=== PATIENT | male | born 1955 | race Caucasian/White ===

== ENCOUNTER → 2016-10-01 | Outpatient (CLI) | payer BC | END | disposition home or self-care (01) | LOC: GMAB 14:46 | PROVIDERS: ATTEND Family Medicine | DX: M79.1 Myalgia (principal) ==

== ENCOUNTER → 2017-03-03 | Outpatient (CLI) | payer BC | END | disposition home or self-care (01) | LOC: LAB 14:43 | PROVIDERS: ATTEND Urology | DX: R97.20 Elevated prostate specific antigen [PSA] (principal) ==

== ENCOUNTER → 2018-06-08 | Outpatient (CLI) | payer BC | LOC: GMAE 17:33 | PROVIDERS: ATTEND Family Medicine | DX: Z00.01 Encounter for general adult medical examination with abnormal findings (principal) ==

== ENCOUNTER → 2018-06-20 | Outpatient (CLI) | payer BC | LOC: GMAE 10:48 | PROVIDERS: ATTEND Family Medicine | DX: R94.6 Abnormal results of thyroid function studies (principal) ==

== ENCOUNTER → 2018-11-14 | Outpatient (CLI) | payer MEDICARE, OTHER ==
--- NOTE | 2018-11-14 12:15 | US ---
EXAM DESCRIPTION: Abdomen,Complete CLINICAL HISTORY: R10.84 COMPARISON: Previous CT abdomen and pelvis March 26, 2011 TECHNIQUE: Complete abdominal ultrasound FINDINGS: Visualized portions of the pancreas are unremarkable. No peripancreatic fluid. Bowel gas obscures some areas. Normal caliber of the aorta. Normal appearance of the inferior vena cava. Liver parenchyma is homogeneous in texture with normal echogenicity. No liver mass or intrahepatic bile duct dilatation. No liver surface irregularity. Normal appearance of hepatic veins and portal vein. Gallbladder appears normal with no intraluminal stones. No gallbladder wall thickening. Common bile duct is normal in caliber measuring 3.6 mm. The right kidney measures 11.7 cm in length. Normal renal cortical echogenicity. Mild diffuse renal cortical thinning. No right renal mass, shadowing stone or cyst. There is no hydronephrosis. Spleen is mildly enlarged measuring 13.3 cm on coronal diagonal measurement. No focal splenic lesion. Previous CT March 26, 2011 showed a craniocaudal length of the spleen 13.9 cm. The left kidney measures 11.7 cm in length. Normal renal cortical echogenicity. Renal cortical thinning is present at the upper and lower poles. No left renal mass, shadowing stone or cyst. There is no hydronephrosis. IMPRESSION: No acute upper abdominal process. Electronically signed by: Terence Jolly MD 11/14/2018 12:12 PM CDT
== END ==
LOC: RAD 11:09
PROVIDERS: ATTEND Physician Assistant
DX: R10.84 Generalized abdominal pain (principal); R11.2 Nausea with vomiting, unspecified

== ENCOUNTER → 2018-12-08 | Outpatient (CLI) | payer MEDICARE, OTHER ==
--- NOTE | 2018-12-08 12:48 | CT ---
Study: CT abdomen and pelvis. Indication: ABDOMINAL PAIN Technique: Noncontrast, venous, and delayed phase CT imaging of the abdomen and pelvis obtained after intravenous administration of contrast. This exam was performed according to our departmental dose-optimization program, which includes automated exposure control, adjustment of the mA and/or kV according to patient size and/or use of iterative reconstruction technique. Comparison: Ultrasound November 14, 2018. CT March 26, 2011. Findings: Cardiomegaly. Patchy bibasilar atelectasis. Liver, gallbladder, pancreas, spleen, adrenal glands, kidneys, bladder unremarkable. Prostatomegaly. Tiny hiatal hernia. Colonic diverticulosis. Small bowel and appendix unremarkable. No free fluid. No free air. No pathologically enlarged adenopathy Atherosclerosis aorta. Degenerative changes of the spine noted. Impression: Colonic diverticulosis without diverticulitis. Prostatomegaly. Correlation with PSA recommended. Atherosclerosis. Additional findings as above. Electronically signed by: Topher Garcia MD 12/08/2018 12:46 PM CDT
== END ==
LOC: CT 11:50
PROVIDERS: ATTEND Physician Assistant
DX: K57.30 Diverticulosis of large intestine without perforation or abscess without bleeding (principal); N40.0 Benign prostatic hyperplasia without lower urinary tract symptoms; I70.90 Unspecified atherosclerosis

== ENCOUNTER → 2019-01-31 | Outpatient (CLI) | payer MEDICARE, OTHER ==
--- NOTE | 2019-01-31 10:06 | US ---
EXAM DESCRIPTION: Venous,Lower Extremity RT: ULTRASOUND. CLINICAL HISTORY: Leg pain. Right leg swelling. COMPARISON: None Available. TECHNIQUE: Au-scale and doppler sonographic evaluation of the deep venous system of the right lower extremity. FINDINGS: Doppler evaluation shows normal color flow and normal phasicity and augmentation of the right common femoral vein, femoral vein, popliteal vein, greater/lesser saphenous vein, peroneal, and posterior tibial vein. The right lower extremity deep veins were completely compressible; normal occlusion with transducer pressure. Au-scale survey showed no echogenic thrombus within these veins. IMPRESSION: 1. Duplex ultrasound evaluation of the right lower extremity deep venous system showing no evidence of thrombosis. Electronically signed by: Alfonso Adkins MD 01/31/2019 10:03 AM CDT
== END ==
LOC: CT 09:26
PROVIDERS: ATTEND Physician Assistant
DX: M79.661 Pain in right lower leg (principal)

== ENCOUNTER → 2019-08-01 | Outpatient (CLI) | payer MEDICARE, OTHER ==
--- NOTE | 2019-08-01 12:53 | MRI ---
Study: MRI of the left humerus. Indication: PAIN UPPER LEFT ARM Technique: Multiplanar, multi sequence MRI of the left humerus was obtained without intravenous contrast. Comparison: None. Findings: Examination not optimized to evaluate the left shoulder or elbow for internal derangement. No tear of the musculature of the left upper arm. No abnormal intramuscular edema. No acute fracture of the left humerus. Fluid distention of the extracapsular long head biceps tendon sheath with suspected tendinosis. Impression: No muscle tear or fracture of the left upper arm. Fluid distention of the extracapsular long head biceps tendon sheath with suspected tendinosis. If concern for internal derangement of the left shoulder for elbow, correlation with dedicated imaging of those joints recommended. Electronically signed by: Topher Garcia MD 08/01/2019 12:51 PM [facility]
== END ==
LOC: MRI 09:35
PROVIDERS: ATTEND Family Medicine
DX: M79.622 Pain in left upper arm (principal); M62.89 Other specified disorders of muscle

== ENCOUNTER → 2019-08-08 | Outpatient (CLI) | payer MEDICARE, OTHER | LOC: GMAE 10:35 | PROVIDERS: ATTEND Family Medicine | DX: Z12.5 Encounter for screening for malignant neoplasm of prostate (principal); I10 Essential (primary) hypertension; E78.2 Mixed hyperlipidemia | CPT/HCPCS: 84443; G0103 ==

== ENCOUNTER → 2019-08-28 | Outpatient (CLI) | payer MEDICARE, OTHER ==
--- NOTE | 2019-08-28 11:50 | RAD ---
4 radiographs left shoulder Indication: PAIN IN LEFT SHOULDER Comparison: None Impression: Moderate AC joint osteoarthritis. Lateral downsloping acromion with undersurface spurring. Minimal glenohumeral joint osteoarthritis. A.C. and glenohumeral joint alignment normal without acute fracture or dislocation. Electronically signed by: Topher Garcia MD 08/28/2019 11:49 AM [facility]
== END ==
LOC: RAD 08:42
PROVIDERS: ATTEND Orthopaedic Surgery
DX: M19.012 Primary osteoarthritis, left shoulder (principal)

== ENCOUNTER → 2019-12-04 | Outpatient (CLI) | payer MEDICARE, OTHER ==
--- NOTE | 2019-12-05 11:12 | MRI ---
EXAM DESCRIPTION: Cervical Spine: MRI. CLINICAL HISTORY: 64 years Male radiculopathy COMPARISON: Cervical radiographs August 2018 and March 2016. TECHNIQUE: Multiplanar, high-field MRI, multiple sequences, non-contrast Cervical spine. FINDINGS: C2-C3: Small focal midline bulge barely impressing the subarachnoid space. Canal and neural foramina are patent. Facets are negative. C3-C4: Minimal disc desiccation and minimal posterior midline bulge not touching the cord. Minimal arthrosis left facet narrowing the left neural foramen. Right neuroforamen and canal are patent. C4-C5: Minimal disc desiccation minimal disc bulge. Minimal posterior ligament thickening. Minimal bilateral facet arthrosis and mild bilateral neural foraminal narrowing. Mild canal narrowing. C5-C6: Disc space loss with mild endplate reactive changes anterior bulging and endplate ridging. Posterior disc bulge abutting the cord. Bilateral uncinate spurs larger on the left. Moderate to severe right neural foraminal narrowing and left neural foraminal stenosis. C6-C7: Disc desiccation with posterior mild disc space loss. Hyperintense T2 annular fissure in the posterior midline disc bulge. Thickening of the posterior ligaments. Mild canal and bilateral neural foraminal narrowing. T1-T2: Disc desiccation and posterior midline bulge. Facet joints and ligaments are unremarkable. No significant canal narrowing and bilateral foramina are patent. Normal signal in the C7-T1 disc with no bulging. Disc space preserved. Canal and neural foramina are patent. Facet joints negative. Spinal alignment C3 - C6 kyphosis. No cord compression or cord edema. Atlantoaxial joint negative.. Base of the cerebellar tonsils is above the foramen magnum. Paravertebral soft tissues unremarkable.. Vertebral bodies are not compressed at any level. Otherwise normal marrow signal in the remaining vertebral bodies and the posterior elements. IMPRESSION: 1. Multiple levels of dislocated bulging discs. 2. Mild to moderate spondylosis C5-C6. Left uncinate spur and bulging disc. Left neural foraminal stenosis. Correlate for left C6 radiculopathy. 3. Posterior midline annular fissure in the C6-C7 disc with minimal midline bulge but no canal stenosis. Electronically signed by: Alfonso Adkins MD 12/05/2019 11:10 AM CDT
== END ==
LOC: MRI 14:23
PROVIDERS: ATTEND Family Medicine Sports Medicine
DX: M47.22 Other spondylosis with radiculopathy, cervical region (principal); M50.30 Other cervical disc degeneration, unspecified cervical region; M50.323 Other cervical disc degeneration at C6-C7 level; M50.822 Other cervical disc disorders at C5-C6 level; M50.823 Other cervical disc disorders at C6-C7 level; M48.02 Spinal stenosis, cervical region; M25.78 Osteophyte, vertebrae

== ENCOUNTER → 2020-02-19 | Outpatient (CLI) | payer MEDICARE, OTHER ==
--- NOTE | 2020-02-19 16:00 | CT ---
EXAM DESCRIPTION: Abdomen/Pelvis w/Contrast CLINICAL HISTORY: ABD PAIN COMPARISON: 12/08/2018 TECHNIQUE: CT of the abdomen and pelvis was performed following intravenous contrast. Multiple axial images and multiplanar reconstructions were generated. This exam was performed according to our departmental dose-optimization program, which includes automated exposure control, adjustment of the mA and/or kV according to patient size and/or use of iterative reconstruction technique. FINDINGS: Lung bases: Mild left basilar linear atelectasis or scarring again demonstrated. Solid organs: Hepatic steatosis. The gallbladder, spleen, pancreas, kidneys, and adrenal glands are unremarkable. Gastrointestinal: Colonic diverticulosis without CT evidence for diverticulitis. Small hiatal hernia. The small intestine is unremarkable. The appendix is normal. No free fluid or free air. Vascular: Severe atherosclerotic plaque in the abdominal aorta and its major branches. Lymph nodes: No pathologically enlarged lymph nodes are present by CT size criteria. Musculoskeletal and soft tissues: No destructive osseous lesions are present. Multilevel lumbar disc degeneration. Urinary bladder and pelvic organs: The urinary bladder is normal. The prostate is mildly enlarged. IMPRESSION: 1. No acute abdominal or pelvic CT findings. 2. Colonic diverticulosis without CT evidence for diverticulitis. 3. Hepatic steatosis. 4. Prostatomegaly. 5. Other findings as above. Electronically signed by: Hayes Hudson MD 02/19/2020 3:58 PM CDT
== END ==
LOC: LAB.O 14:56
PROVIDERS: ATTEND Family Medicine
DX: K57.30 Diverticulosis of large intestine without perforation or abscess without bleeding (principal); K76.0 Fatty (change of) liver, not elsewhere classified; N40.0 Benign prostatic hyperplasia without lower urinary tract symptoms; M51.36 Other intervertebral disc degeneration, lumbar region; I70.0 Atherosclerosis of aorta; K44.9 Diaphragmatic hernia without obstruction or gangrene; J98.4 Other disorders of lung

== ENCOUNTER → 2020-03-05 | Outpatient (CLI) | payer MEDICARE, OTHER ==
--- NOTE | 2020-03-05 20:12 | MRI ---
Study: MRI of the Left Hip. Indication: PAIN IN LEFT HIP Technique: Multiplanar, multi sequence MRI of the left hip was obtained without intravenous contrast. Comparison: CT pelvis February 19, 2020. Findings: Lower lumbar disc disease. Tendinosis bilateral hamstring tendon origins. Tendinosis bilateral gluteus minimus/medius insertions with mild bilateral greater trochanteric bursal edema. Mild pubic symphysis osteoarthritis. No acute fracture or osteonecrosis. Mixed areas of grade 2 and 3 chondrosis throughout the left hip joint with tiny joint line osteophytes. Labral degeneration noted. 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 No acute fracture or osteonecrosis. Additional findings as above. Electronically signed by: Topher Garcia MD 03/05/2020 12:04 PM CDT
== END ==
LOC: MRI 07:51
PROVIDERS: ATTEND Family Medicine
DX: M16.12 Unilateral primary osteoarthritis, left hip (principal)

== ENCOUNTER → 2020-08-15 | Outpatient (CLI) | payer MEDICARE, OTHER | LOC: GMAE 11:28 | PROVIDERS: ATTEND Family Medicine | DX: M10.9 Gout, unspecified (principal); Z12.5 Encounter for screening for malignant neoplasm of prostate; I10 Essential (primary) hypertension; E78.2 Mixed hyperlipidemia | CPT/HCPCS: 84443; 84550; G0103 ==

== ENCOUNTER → 2020-08-28 | Outpatient (CLI) | payer MEDICARE, OTHER ==
--- NOTE | 2020-08-28 21:31 | US ---
EXAM DESCRIPTION: Aorta: Ultrasound. CLINICAL HISTORY: AAA SCREENING COMPARISON: CT scan abdomen and pelvis January 2020 TECHNIQUE: Transcutaneous scanning: Two-dimensional and Doppler modes. Technically difficult study due to patient large body habitus. FINDINGS: Abdominal aorta diameter - Proximal: 2.3 x 2.2 cm. Mid: 2.9 x 2.6 cm. Distal: 2.8 x 2.0 cm. Common Iliac diameter - Right: 11 mm. Left: 12 mm. Other: Atherosclerotic changes in the aortic intima.. IMPRESSION: 2.9 cm abdominal aortic aneurysm at the mid aorta. Aorta measured 2.8 x 2.3 cm at the L3 level on the CT scan from January 2020. [facility] Best Practice guidelines: 2.9 cm abdominal aortic aneurysm suspected. Recommend follow-up every 5 years. Reference: J Am Elroy Radiol 2013;10:789-794. Electronically signed by: Alfonso Adkins MD 08/28/2020 9:30 PM [employer]
== END ==
LOC: US 07:47
PROVIDERS: ATTEND Family Medicine
DX: Z13.89 Encounter for screening for other disorder (principal); I71.4 Abdominal aortic aneurysm, without rupture; R10.13 Epigastric pain